=== PATIENT | male | born 1945 | race Caucasian/White ===

== ENCOUNTER 2024-04-28 08:15 | Inpatient (IN) | payer MEDICARE ==
[~2024-04-28] VITALS: Ht 177.8 cm; Wt 99.8 kg
--- NOTE | 2024-04-28 08:37 | ED.PDOC ---
HPI Comments 78 year old male presents to the ED with chief complaint of SOB/chest pain. Patient reports that he has been experiencing SOB with associated chest tightness, cough, bilateral leg edema, and abdominal swelling for the past 6 days. 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 Patient denies any dizziness, headache, fever, chills, N/V, or abdominal pain. Chief Complaint: Chest Pain Time Seen by MD: 08:26 Reviewed Notes: Nurses Notes, Medications, Allergies Allergies: Coded Allergies: Tramadol (Verified Allergy, Unknown, 04/28/24) Information Source: Patient Mode of Arrival: Ambulatory Severity: Moderate Timing: Days Duration: Since onset Prehospital treatment: None Location: Substernal Radiation: No Radiation Quality: Tightness Onset: At Rest Cardiac Risk Factors: HTN, Diabetes PE Risk Factors: None Associated Signs and Symptoms: SOB, Calf Swelling Past Medical History PAST MEDICAL HISTORY: DM, HTN Surgical History: Denies all surgeries Surgical History (Other): Rt knee surgery Family History Family History: Reviewed,noncontributory to illness Social History Smoker: Non-Smoker Alcohol: Denies ETOH Use Drugs: Denies Drug Use Lives In: Home Constitutional: denies: chills, diaphoresis, fatigue, fever, malaise, sweats, weakness, others EENTM: denies: blurred vision, double vision, ear bleeding, ear discharge, ear drainage, ear pain, ear ringing, eye pain, eye redness, hearing loss, mouth pain, mouth swelling, nasal discharge, nose bleeding, nose congestion, nose pain, photophobia, tearing, throat pain, throat swelling, voice changes, others Respiratory: reports: cough, shortness of breath; denies: hemoptysis, orthopnea, SOB at rest, SOB with excertion, stridor, wheezing, others Cardiovascular: reports: chest pain, edema; denies: dizzy spells, diaphoresis, Dyspnea on exertion, irregular heart beat, left arm pain, lightheadedness, palpitations, PND, syncope, others Gastrointestinal: reports: abdomen distended; denies: abdominal pain, blood streaked bowels, constipated, diarrhea, dysphagia, difficulty swallowing, hematemesis, melena, nausea, poor appetite, poor fluid intake, rectal bleeding, rectal pain, vomiting, others Genitourinary: denies: burning, dysuria, flank pain, frequency, hematuria, incontinence, penile discharge, penile sore, pain, testicle pain, testicle swelling, urgency, others Neurological: denies: dizziness, fainting, headache, left sided numbness, left sided weakness, numbness, paresthesia, pre-existing deficit, right sided numbness, right sided weakness, seizure, speech problems, tingling, tremors, weakness, others Musculoskeletal: denies: back pain, gout, joint pain, joint swelling, muscle pain, muscle stiffness, neck pain, others Integumetry: denies: bruises, change in color, change in hair/nails, dryness, laceration, lesions, lumps, rash, wounds, others Allergic/Immunocompromised: denies: Difficulty Healing, Frequent Infections, Hives, Itching, others Hematologic/Lymphatic: denies: anemia, blood clots, easy bleeding, easy bruising, swollen glands, others Endocrine: denies: excessive hunger, excessive sweating, excessive thirst, excessive urination, flushing, intolerance to cold, intolerance to heat, unexplained weight gain, unexplained weight loss, others Psychiatric: denies: anxiety, bipolar disorder, depression, hopeless, panic disorder, schizophrenia, sleepless, suicidal, others All Other Systems: Reviewed and Negative Physical Exam General Appearance: Moderate Distress, Normal HEENT: Normal ENT Inspection, PERRL/EOMI Neck: Full Range of Motion, Non-Tender, Normal, Normal Inspection Respiratory: Chest Non-Tender, Lungs Clear, No Accessory Muscle Use, No Respiratory Distress, Normal Breath Sounds Cardiovascular: No Edema, No JVD, No Murmur, No Gallop, Normal Peripheral Pulses, Regular Rate/Rhythm Breast Exam: Deferred Gastrointestinal: No Organomegaly, Non Tender, No Pulsatile Mass, Normal Bowel Sounds, Soft Genitalia: Deferred Pelvic: Deferred Rectal: Deferred Extremities: No calf tenderness, Normal capillary refill, Normal inspection, Normal range of motion, Non-tender, No pedal edema Musculoskeletal : Apperance: Normal Neurologic: Alert, manager real estate II-XII nml as Tested, No Motor Deficits, Normal Affect, Normal Mood, No Sensory Deficits Cerebellar Function: NOT DONE Reflexes: NOT DONE Skin: Dry, Normal Color, Warm Peripheral Pulses: 3+ Radial (R), 3+ Radial (L) Lymphatic: No Adenopathy Was a procedure done? Was a procedure done?: No CP Differential Dx Differential Diagnosis: A-fib, A-Flutter, Angina, Anxiety / Panic Attack, Atrial Dysrhythmia, Electrolyte Disorder X-Ray, Labs, Meds, VS Vital Signs Date Time Temp Pulse Resp B/P (MAP) Pulse Ox O2 Delivery O2 Flow Rate FiO2 04/28/24 11:08 151/97 04/28/24 11:06 98.4 105 24 151/97 (115) 96 98.4 04/28/24 09:16 113 04/28/24 08:49 140/100 04/28/24 08:48 140/100 04/28/24 08:39 115 24 97 Room Air 04/28/24 08:39 98.7 115 24 140/100 (113) 97 98.7 04/28/24 08:38 98.0 123 18 147/108 (121) 96 04/28/24 08:37 121 Lab Test 04/28/24 11:30 04/28/24 09:30 04/28/24 08:32 Range/Units Troponin I High Sensitivity 29 26 27 </=54 ng/L White Blood Count 6.8 4.4-10.8 10^3/uL Red Blood Count 4.74 4.5-5.90 10^6/uL Hemoglobin 13.9 13.5-17.5 g/dL Hematocrit 42.8 41.0-53.0 % Mean Corpuscular Volume 90.4 80.0-100.0 fL Mean Corpuscular Hemoglobin 29.4 28.0-32.0 pg Mean Corpuscular Hemoglobin Concent 32.5 32.0-36.0 g/dL Red Cell Distribution Width 15.7 H 11.8-14.3 % Platelet Count 249 140-450 10^3/uL Mean Platelet Volume 8.8 6.9-10.8 fL Neutrophils (%) (Auto) 84.2 H 37.0-80.0 % Lymphocytes (%) (Auto) 7.4 L 10.0-50.0 % Monocytes (%) (Auto) 7.1 0.0-12.0 % Eosinophils (%) (Auto) 0.9 0.0-7.0 % Basophils (%) (Auto) 0.4 0.0-2.0 % Neutrophils # (Auto) 5.8 1.6-8.6 10 ^3/uL Lymphocytes # (Auto) 0.5 0.4-5.4 10 ^3/uL Monocytes # (Auto) 0.5 0-1.3 10 ^3/uL Eosinophils # (Auto) 0.1 0-0.8 10 ^3/uL Basophils # (Auto) 0 0-0.2 10 ^3/uL Nucleated Red Blood Cells 0.0 % Sodium Level 139 136-145 mmol/L Potassium Level 4.5 3.5-5.1 mmol/L Chloride Level 106 98-107 mmol/L Carbon Dioxide Level 24 20-31 mmol/L Anion Gap 9 5-15 Blood Urea Nitrogen 19 9-23 mg/dL Creatinine 1.28 0.700-1.30 mg/dL Glomerular Filtration Rate Calc 57 >90 mL/min BUN/Creatinine Ratio 14.8 10.0-20.0 Serum Glucose 149 H 74-106 mg/dL Calcium Level 9.9 8.7-10.4 mg/dL Total Bilirubin 0.7 0.2-1.0 mg/dL Aspartate Amino Transferase (AST) 12 L 13-40 U/L Alanine Aminotransferase (ALT) 18 7-40 U/L Alkaline Phosphatase 58 46-116 U/L B-Type Natriuretic Peptide 1832.35 0-100 pg/mL Total Protein 7.1 5.7-8.2 g/dL Albumin 4.5 3.2-4.8 g/dL Current Medications Medications (Trade) Dose Ordered Sig/Aparna Route Start Time Stop Time Status Last Admin Aspirin 325 mg ONCE ONCE PO 04/28/24 08:30 04/28/24 08:31 DC 04/28/24 08:49 Nitroglycerin (Ntrostat Sublingual) 0.4 mg ONCE ONCE SL 04/28/24 08:30 04/28/24 08:31 DC 04/28/24 08:49 Furosemide (Lasix Injection) 40 mg ONCE ONCE IV 04/28/24 08:30 04/28/24 08:31 DC 04/28/24 08:48 Patient alert. Complaining of shortness a breath. BNP elevated pain Cardiac marker within normal limits. Tachycardia. Leg swelling. Was given aspirin. Was given nitro. Was given Lasix. EKG reviewed does not show any acute changes. Reviewed his previous visit. Explained to the patient. Continue cardiac monitoring. Time of 1ST Reevaluation: 09:26 Reevaluation 1ST: Unchanged Patient Education/Counseling: Diagnosis, Treatment Family Education/Counseling: No Family Present Departure 1 Departure Time of Disposition: 12:59 Impression: Primary Impression: CHF (congestive heart failure) Qualified Codes: I50.43 - Acute on chronic combined systolic (congestive) and diastolic (congestive) heart failure Additional Impression: Pneumonitis Disposition: ADMITTED INPATIENT Admit to: Med Surg Condition: Guarded Critical Care Note Critical Care Time?: Yes (90 min-critical care time only) Stability Stability form required: No Heart Score Heart Score: Heart Score Response (Comments) Value History Highly Suspicious 2 EKG Normal 0 Age >65 2 Risk Factors >3 or Hx ASHD 2 Troponin Normal limit 0 Total 6 I personally scribed for VINICIUS GARCIA MD ([email or web address]) on 04/28/24 at 08:37. Electronically submitted by Chuck Perez ([email or web address]). VINICIUS GARCIA MD Apr 28, 2024 08:37
[2024-04-28] MEDS: FUROSEMIDE 40 MG/4 ML VIAL IV ONE (08:48)
[2024-04-28] MEDS: NITROGLYCERIN 0.4 MG SL TAB SL ONE (08:49)
[2024-04-28] MEDS: ASPirin 325 MG TAB PO ONE (08:49)
[2024-04-28 09:20] LABS: Basophils # (auto) 0 10 ^3/uL (0-0.2); Basophils % (auto) 0.4 % (0.0-2.0); Eosinophils # (auto) 0.1 10 ^3/uL (0-0.8); Eosinophils % (auto) 0.9 % (0.0-7.0); Hematocrit 42.8 % (41.0-53.0); Hemoglobin 13.9 g/dL (13.5-17.5); Lymphocytes # (auto) 0.5 10 ^3/uL (0.4-5.4); Lymphocytes % (auto) 7.4 % (10.0-50.0); Mean Corpuscular Hemoglobin 29.4 pg (28.0-32.0); Mean Corpuscular Hgb Conc. 32.5 g/dL (32.0-36.0); Mean Corpuscular Volume 90.4 fL (80.0-100.0); Monocytes # (auto) 0.5 10 ^3/uL (0-1.3); Monocytes % (auto) 7.1 % (0.0-12.0); Neutrophils # (auto) 5.8 10 ^3/uL (1.6-8.6); Neutrophils % (auto) 84.2 % (37.0-80.0); Platelet Count (auto) 249 10^3/uL (140-450); Red Blood Cells 4.74 10^6/uL (4.5-5.90); Red Cell Distribution Width 15.7 % (11.8-14.3); White Blood Cell 6.8 10^3/uL (4.4-10.8)
[2024-04-28 09:24] LABS: Alanine Aminotransferase 18 U/L (7-40); Albumin 4.5 g/dL (3.2-4.8); Alkaline Phosphatase 58 U/L (46-116); Anion Gap 9 (5-15); Aspartate Aminotransferase 12 U/L (13-40); BUN/Creatinine Ratio 14.8 (10.0-20.0); Bilirubin, Total 0.7 mg/dL (0.2-1.0); Blood Urea Nitrogen 19 mg/dL (9-23); Calcium 9.9 mg/dL (8.7-10.4); Carbon Dioxide 24 mmol/L (20-31); Chloride 106 mmol/L (98-107); Glucose 149 mg/dL (74-106); Potassium 4.5 mmol/L (3.5-5.1); Sodium 139 mmol/L (136-145)
[2024-04-28 09:25] LABS: Total Protein 7.1 g/dL (5.7-8.2)
--- NOTE | 2024-04-28 13:41 | DVH ---
XY CHEST PORTABLE, HISTORY: Shortness of breath COMPARISON: None None TECHNICAL DATA: 1 view of the chest was obtained. FINDINGS: Lines and tubes: None Cardiomediastinal silhouette: enlarged Pulmonary vasculature: prominent Lung expansion: normal Lung airspace: normal Lung interstitium: normal Pleura: normal Pneumothorax: no Bones: Unremarkable Other: no IMPRESSION: Cardiomegaly with pulmonary vascular congestion.
[2024-04-28] MEDS ORDERED: MORPHINE SULFATE INJ 2 MG/ml SYRG IV PRN (14:30)
[2024-04-28] MEDS ORDERED: ONDANSETRON HCL 4 MG/2 ML VIAL IV PRN (14:30)
[2024-04-28] MEDS ORDERED: LOS25T PO (14:41)
[2024-04-28] MEDS ORDERED: DEXTROSE (50%) 50ML SYRG IV PRN (14:45)
--- NOTE | 2024-04-28 15:42 | DVHHP2 ---
History of Present Illness Reason for Visit: Chest pain History of Present Illness 78-year-old male presented to the ED with chief complaint of shortness of breaths/chest pain. Patient reported he had been experiencing shortness of breath with chest tightness, cough, bilateral lower extremity edema, and abdominal swelling for the past 6 days. Patient states he saw his primary care provider 2-3 days ago and was referred to a enterprise infrastructure architect but has not yet seen them. Patient denies headache, dizziness, diaphoresis, abdominal pain, no nausea, vomiting, fever, or chills endorsed by the patient. Patient was admitted for further evaluation medical management. Past Medical History DM, HTN Past Surgical History Right knee surgery Family History Reviewed noncontributory to the management of this case Smoke: No ALCOHOL: none Drugs: None Lives: with Family Review of Systems Constitutional: No: Fever, Chills, Sweats, Weakness, Malaise, Other Eyes: No: Pain, Vision change, Conjunctivae inflammation, Eyelid inflammation, Other, Redness ENT: No: Ear pain, Ear discharge, Nose pain, Nose discharge, Nose congestion, Mouth pain, Mouth swelling, Throat pain, Throat swelling, Other Respiratory: No: Cough, Dry, Shortness of breath, SOB with excertion, Wheezing, Hemoptysis, Pleuritic Pain, Sputum, Wheezing, Other Cardiovascular: Chest Pain, Edema (Bilateral lower extremity and abdominal); No: Palpitations, Orthopnea, Paroxysmal Noc. Dyspnea, Lt Headedness, Other Gastrointestinal: No: Nausea, Vomiting, Abdominal Pain, Diarrhea, Constipation, Melena, Hematochezia, Other Genitourinary: No Dysuria, No Frequency, No Incontinence, No Hematuria, No Retention, No Other Musculoskeletal: No: other, neck pain, shoulder pain, arm pain, back pain, hand pain, leg pain, foot pain Skin: No: Rash, Lesions, Jaundice, Bruising, Other Neurological: No: Weakness, Numbness, Incoordination, Change in speech, Confusion, Seizures, Other Allergies: Coded Allergies: Tramadol (Verified Allergy, Unknown, 04/28/24) Medications Current Medications Medications Dose Ordered Sig/Aparna Route Start Time Stop Time Status Last Admin Dose Admin Acetaminophen/ Hydrocodone Bitart 1 tab Q4HP PRN PO 04/28/24 14:30 UNV Ondansetron HCl 4 mg Q4HP PRN IV 04/28/24 14:30 UNV Nitroglycerin 0.4 mg Q5MINP PRN SL 04/28/24 14:30 UNV Morphine Sulfate 2 mg Q30M PRN IV 04/28/24 14:30 UNV Labetalol HCl 5 mg Q2HPRN PRN IV 04/28/24 14:30 UNV Furosemide 20 mg BIDD IV 04/28/24 18:00 UNV Potassium Chloride 20 meq DAILY PO 04/29/24 10:00 UNV Diagnostic Test (Pha) 1 strip ACHS 04/28/24 17:00 UNV Insulin Human Regular HS SC 04/28/24 22:00 UNV Insulin Human Regular AC SC 04/28/24 17:00 UNV Dextrose 50 ml UD PRN IV 04/28/24 14:45 UNV Losartan Potassium 25 mg DAILY PO 04/29/24 10:00 UNV Exam Vital Signs Vital Signs Date Time Temp Pulse Resp B/P (MAP) Pulse Ox O2 Delivery O2 Flow Rate FiO2 04/28/24 11:08 151/97 04/28/24 11:06 98.4 105 24 96 98.4 04/28/24 08:39 Room Air General Appearance: Alert, Oriented X3, Cooperative, No acute distress HEENT: Atraumatic, PERRLA, EOMI, Mucous membr. moist/pink Respiratory: Clear to auscultation, Normal air movement Cardiovascular: Regular rate, Normal S1, Normal S2, No murmurs Abdominal: Normal bowel sounds, Soft, No tenderness, No hepatospenomegaly, No masses Extremities: No clubbing, No cyanosis, No edema, Normal pulses, No tenderness/swelling Skin: No rashes, No breakdown, No significant lesion Neuro: Normal gait, Normal speech, Strength at 5/5 X4 ext, Normal tone, Sensation intact, Cranial nerves 3-12 NL, Reflexes 2+ Psych/Mental Status: Mental status NL, Mood NL Labs/Xrays Labs, imaging and ED notes reviewed Labs Test 04/28/24 11:30 04/28/24 08:32 Range/Units Troponin I High Sensitivity 29 </=54 ng/L White Blood Count 6.8 4.4-10.8 10^3/uL Red Blood Count 4.74 4.5-5.90 10^6/uL Hemoglobin 13.9 13.5-17.5 g/dL Hematocrit 42.8 41.0-53.0 % Mean Corpuscular Volume 90.4 80.0-100.0 fL Mean Corpuscular Hemoglobin 29.4 28.0-32.0 pg Mean Corpuscular Hemoglobin Concent 32.5 32.0-36.0 g/dL Red Cell Distribution Width 15.7 H 11.8-14.3 % Platelet Count 249 140-450 10^3/uL Mean Platelet Volume 8.8 6.9-10.8 fL Neutrophils (%) (Auto) 84.2 H 37.0-80.0 % Lymphocytes (%) (Auto) 7.4 L 10.0-50.0 % Monocytes (%) (Auto) 7.1 0.0-12.0 % Eosinophils (%) (Auto) 0.9 0.0-7.0 % Basophils (%) (Auto) 0.4 0.0-2.0 % Neutrophils # (Auto) 5.8 1.6-8.6 10 ^3/uL Lymphocytes # (Auto) 0.5 0.4-5.4 10 ^3/uL Monocytes # (Auto) 0.5 0-1.3 10 ^3/uL Eosinophils # (Auto) 0.1 0-0.8 10 ^3/uL Basophils # (Auto) 0 0-0.2 10 ^3/uL Nucleated Red Blood Cells 0.0 % Sodium Level 139 136-145 mmol/L Potassium Level 4.5 3.5-5.1 mmol/L Chloride Level 106 98-107 mmol/L Carbon Dioxide Level 24 20-31 mmol/L Anion Gap 9 5-15 Blood Urea Nitrogen 19 9-23 mg/dL Creatinine 1.28 0.700-1.30 mg/dL Glomerular Filtration Rate Calc 57 >90 mL/min BUN/Creatinine Ratio 14.8 10.0-20.0 Serum Glucose 149 H 74-106 mg/dL Hemoglobin A1c 7.4 H <5.7 % A1C Calcium Level 9.9 8.7-10.4 mg/dL Total Bilirubin 0.7 0.2-1.0 mg/dL Aspartate Amino Transferase (AST) 12 L 13-40 U/L Alanine Aminotransferase (ALT) 18 7-40 U/L Alkaline Phosphatase 58 46-116 U/L B-Type Natriuretic Peptide 1832.35 0-100 pg/mL Total Protein 7.1 5.7-8.2 g/dL Albumin 4.5 3.2-4.8 g/dL Assessment/Plan Assessment/Plan Impression: Acute Chest pain Lower extremity edema Shortness of breath Possible new CHF Diabetes mellitus type 2 pulmonary vascular congestion Plan: Admit to telemetry ACS protocol Consult cardiology Lasix IV/potassium Monitor labs Monitor I&Os BNP 1832 Accu-Cheks a.c. HS/insulin sliding scale Chest x-ray showed cardiomegaly with pulmonary vascular congestion Continue home meds Plan discussed with: Patient My Orders Orders - CALVILLOGHASSAN [employer]NER Procedure Category Date Status Time Chest Portable XY 04/28/24 Resulted 12:55 Covid19 Antigen [facility] 04/28/24 Logged Rapid Influenza A&B LAB 04/28/24 Logged 12:56 Admit ADMIT 04/28/24 Transmitted 14:26 Code Status CODE 04/28/24 Transmitted 14:26 Vital Signs [facility] 04/28/24 In Process 14:26 Review Orders With [facility] 04/28/24 In Process Adm. 14:26 Bedside Commode [facility] 04/28/24 In Process 14:26 Notify Of Changes [facility] 04/28/24 In Process From Base 14:26 Advance Directive [facility] 04/28/24 In Process 14:26 Basic Metabolic Panel LAB 04/29/24 Verified 04:00 Complete Blood Count LAB 04/29/24 Verified 04:00 Patient Condition ORDERS 04/28/24 Transmitted 14:26 Allergies [facility] 04/28/24 In Process 14:26 Hydrocodone-Acet PHA 04/28/24 Logged 5/325mg Tab (Gering 14:30 Ondansetron Hcl PHA 04/28/24 Logged (Zofran) 14:30 Cardiac DIET 04/28/24 Transmitted Diet-2gna,Lofat,Lochol Dinner Nitroglycerin PHA 04/28/24 Logged Sublingual (Ntrostat 14:30 Morphine Sulfate PHA 04/28/24 Logged Injection 14:30 Stat Ekg For Chest [facility] 04/28/24 In Process Pain 14:26 Notify Of Changes [facility] 04/28/24 In Process From Base 14:26 Innovation Manager For [facility] 04/28/24 In Process 24 Hours 14:26 Emergency Dysrhythmia [facility] 04/28/24 In Process Protocol 14:26 Rhythm Strips Once [facility] 04/28/24 In Process Every Shift 14:26 Oxygen By Nasal RT 04/28/24 Transmitted Cannula 14:26 Labetalol Hcl PHA 04/28/24 Logged (Labetalol Hcl) 14:30 * Cardiology Consult CONS 04/28/24 Transmitted 14:26 Furosemide Injection PHA 04/28/24 Logged (Lasix Injection) 18:00 Potassium Er Tablet PHA 04/29/24 Logged (Klor-Con Tablet) 10:00 Glucose Blood PHA 04/28/24 Logged (Accu-Chek Comfort 17:00 Insulin R (Human) PHA 04/28/24 Logged (Insulin R) 22:00 Insulin R (Human) PHA 04/28/24 Logged (Insulin R) 17:00 Dextrose 50% Syringe PHA 04/28/24 Logged 14:45 Losartan Tablet PHA 04/29/24 Logged (Cozaar Tablet) 10:00 Date of Service: Apr 28, 2024 Billing Provider: GHASSAN CALVILLO Common Visit Codes: 11812-[id number] INP/OBS CARE (HIGH) GHASSAN CALVILLO Apr 28, 2024 15:42
[2024-04-28] MEDS: InsuLIN REG 1unit/0.01ml Soln (100units/ml) SC SCH ×2 (17:00→23:01)
[2024-04-28] MEDS: ACCU-CHEK COMFORT CURVE STRIP VI SCH (17:00)
[2024-04-28 18:46] VITALS: RESP 19; O2SAT 95
[2024-04-28] MEDS: FUROSEMIDE 20 MG/2 ML VIAL IV SCH (18:51)
--- NOTE | 2024-04-28 19:00 | ECG ---
[facility] Test Date: 2024-04-28 Test Time: 09:16:26 Pat Name: ADARSH ROOT Department: ED Room: 0288T B Gender: M Filament Cutter: EDMUND : 1945 Requested By: VINICIUS GARCIA Order Number: [id number] Reading MD: Otilio Hughes Measurements Intervals [place] Rate: 113 P: 0 TN: 0 QRS: -21 QRSD: 157 T: 153 QT: 371 QTc: 509 Interpretive Statements Atrial flutter with predominant 2:1 AV block Left bundle branch block Baseline wander in lead(s) V1,V2 Electronically Signed On 05-04-2024 13:22:30 PST by Otilio Hughes Please click the below link to view image of tracing.
[2024-04-28] MEDS ORDERED: MOME1SPR3 NAS (19:57)
[2024-04-28] MEDS ORDERED: METF-372 PO (19:57)
[2024-04-28] MEDS ORDERED: AMOX875T4 (19:57)
[2024-04-28] MEDS: LABETALOL HCL 20 MG/4 ML VL IV PRN (20:51)
[2024-04-28 21:00] VITALS: BP 117/85; PULSE 86; RESP 20; TEMP 98.6; O2SAT 96
[2024-04-28] MEDS: NITROGLYCERIN 0.4 MG SL TAB SL PRN (22:01)
[2024-04-29] VITALS (7 sets, daily range): BP systolic 116–140; BP diastolic 79–94; PULSE 61–88; RESP 18–20; TEMP 97.4–98.8; O2SAT 94–100
[2024-04-29 03:49] LABS: COVID19 ANTIGEN SOFIA FIA NEGATIVE (NEGATIVE); Rapid Influenza A Negative (Negative); Rapid Influenza B Negative (Negative)
[2024-04-29 06:07] LABS: Basophils # (auto) 0 10 ^3/uL (0-0.2); Basophils % (auto) 0.7 % (0.0-2.0); Eosinophils # (auto) 0.2 10 ^3/uL (0-0.8); Eosinophils % (auto) 3.3 % (0.0-7.0); Hematocrit 40.9 % (41.0-53.0); Lymphocytes # (auto) 0.7 10 ^3/uL (0.4-5.4); Lymphocytes % (auto) 10.8 % (10.0-50.0); Mean Corpuscular Hemoglobin 30.8 pg (28.0-32.0); Mean Corpuscular Hgb Conc. 34.1 g/dL (32.0-36.0); Mean Corpuscular Volume 90.1 fL (80.0-100.0); Monocytes # (auto) 0.5 10 ^3/uL (0-1.3); Monocytes % (auto) 7.9 % (0.0-12.0); Neutrophils # (auto) 4.9 10 ^3/uL (1.6-8.6); Neutrophils % (auto) 77.3 % (37.0-80.0); Platelet Count (auto) 222 10^3/uL (140-450); Red Blood Cells 4.54 10^6/uL (4.5-5.90); Red Cell Distribution Width 15.2 % (11.8-14.3); White Blood Cell 6.4 10^3/uL (4.4-10.8)
[2024-04-29 06:37] LABS: Anion Gap 8 (5-15); Carbon Dioxide 29 mmol/L (20-31); Chloride 103 mmol/L (98-107); Potassium 3.9 mmol/L (3.5-5.1); Sodium 140 mmol/L (136-145)
[2024-04-29 06:38] LABS: Calcium 9.6 mg/dL (8.7-10.4)
[2024-04-29 06:43] LABS: BUN/Creatinine Ratio 13.3 (10.0-20.0); Blood Urea Nitrogen 15 mg/dL (9-23); Glucose 107 mg/dL (74-106)
--- NOTE | 2024-04-29 07:00 | ECG ---
[facility] Test Date: 2024-04-28 Test Time: 08:22:17 Pat Name: ADARSH ROOT Department: ER Room: [facility]8T B Gender: M Disk Recordist: NICK : 1945 Requested By: VINICIUS GARCIA Order Number: [id number] Reading MD: Otilio Hughes Measurements Intervals [place] Rate: 121 P: -72 GA: 120 QRS: -27 QRSD: 156 T: 145 QT: 394 QTc: 559 Interpretive Statements Sinus or ectopic atrial tachycardia Left bundle branch block Electronically Signed On 05-04-2024 13:21:42 PST by Otilio Hughes Please click the below link to view image of tracing.
[2024-04-29] MEDS ORDERED: LOSARTAN POTASSIUM 25 MG TAB PO SCH (10:00)
[2024-04-29] MEDS: POTASSIUM CHL 20 Meq TABLET PO SCH (11:54)
[2024-04-29] MEDS: METOPROLOL TARTRATE 25 MG TAB PO ONE (12:01)
--- NOTE | 2024-04-29 13:15 | DVHINCON2 ---
Date Seen: Apr 29, 2024 Referring Physician REGGIE Landeros Reason for Consultation CHF History of Present Illness 78-year-old male with PMH for HTN and DM presents to the hospital with shortness of breath and chest pressure. Patient states that symptoms started approximately 4 weeks ago with shortness of breath and some mild edema to bilateral lower extremity. Symptoms became worse to the point to where patient had significant orthopnea unable to lay flat needing the sit up to sleep. Patient states chest tightness associated with worsening shortness of breath across left or right-sided chest, tightness in nature, unable to catch breath, nonradiating. Patient was following up with PCP for which he was referred to database administration manager though has not seen yet and can not wait as breathing was worsening. Patient denies current tobacco use, quit "a long time ago", denies alcohol use, and denies illicit drug use. Upon evaluation in the ER patient noted to have elevated BNP of 1832, negative trending troponins, CXR showing cardiomegaly with pulmonary vascular congestion. EKG reviewed and shows sinus rhythm an 82 beats per minute, LBBB, nonspecific T-wave. Past Medical History HTN DM Family History: Patient reports no known family medical history. Family History Denies pertinent family cardiac history Social History Denies current alcohol, tobacco, or illicit drug use Allergies: Coded Allergies: Tramadol (Verified Allergy, Severe, ANAPHYLACTIC, 04/28/24) CAN NOT BREATHE THROAT TIGHTNESS Uncoded Allergies: EGGS (Allergy, Severe, ANAPHYLACTIC, 04/28/24) Home Meds Reported Medications Amoxicillin & Pot Clavulanate (Amoxicillin/Potassium Cla) 875 Mg Tab 04/28/24 Metformin Hydrochloride (Metformin Hcl) 1,000 Mg Tab, 1 TAB PO BID 04/28/24 Mometasone Furoate (Nasal) (Mometasone Furoate) 50 Mcg/Act Spr, 2 SPRAY MIHIR DAILY 04/28/24 Losartan Potassium (Losartan Potassium) 25 Mg Tab, 1 TAB PO DAILY 04/28/24 Current Medications Current Medications Medications (Trade) Dose Ordered Sig/Aparna Route PRN Reason Start Time Stop Time Status Last Admin Acetaminophen/ Hydrocodone Bitart ([place] 5/325MG Tab) 1 tab Q4HP PRN PO MODERATE PAIN (4-6 PAIN SCALE) 04/28/24 14:30 Ondansetron HCl (Zofran) 4 mg Q4HP PRN IV NAUSEA / VOMITING 04/28/24 14:30 Nitroglycerin (Ntrostat Sublingual) 0.4 mg Q5MINP PRN SL FOR CHEST PAIN 04/28/24 14:30 04/28/24 22:01 Morphine Sulfate 2 mg Q30M PRN IV FOR CHEST PAIN 04/28/24 14:30 Labetalol HCl (Labetalol HCl) 5 mg Q2HPRN PRN IV SBP>150 04/28/24 14:30 04/28/24 20:51 Furosemide (Lasix Injection) 20 mg BIDD IV 04/28/24 18:00 04/29/24 06:27 Potassium Chloride (Klor-Con Tablet) 20 meq DAILY PO 04/29/24 10:00 04/29/24 11:54 Diagnostic Test (Pha) (Accu-Chek Comfort Curve T) 1 strip ACHS 04/28/24 17:00 04/29/24 12:03 Insulin Human Regular (InsuLIN R) HS SC 04/28/24 22:00 04/28/24 23:01 Insulin Human Regular (InsuLIN R) AC SC 04/28/24 17:00 04/29/24 11:57 Dextrose 50 ml UD PRN IV Blood Sugar LESS THAN 60 04/28/24 14:45 Losartan Potassium (Cozaar Tablet) 25 mg DAILY PO 04/29/24 10:00 04/29/24 10:13 DC Metoprolol Tartrate (Lopressor Tablet) 25 mg BID PO 04/29/24 22:00 Review of Systems Constitutional: No: Fever, Chills, Sweats, Weakness, Malaise, Other Eyes: No: Pain, Vision change, Conjunctivae inflammation, Eyelid inflammation, Other, Redness ENT: No: Ear pain, Ear discharge, Nose pain, Nose discharge, Nose congestion, Mouth pain, Mouth swelling, Throat pain, Throat swelling, Other Respiratory: No: Cough, Dry, , Wheezing, Hemoptysis, Pleuritic Pain, Sputum, Wheezing, Other positive: Shortness of breath, SOB with exertion Cardiovascular: ; No: Chest Pain Palpitations, Orthopnea, Paroxysmal Noc. Dyspnea, , Lt Headedness, Other positive: Edema Gastrointestinal: No: Nausea, Vomiting, Abdominal Pain, Diarrhea, Constipation, Melena, Hematochezia, Other Genitourinary: No Dysuria, No Frequency, No Incontinence, No Hematuria, No Retention, No Other Musculoskeletal: neck pain; No: other, shoulder pain, arm pain, back pain, hand pain, leg pain, foot pain Skin: No: Rash, Lesions, Jaundice, Bruising, Other Neurological: Other (Dizziness, headache.); No: Weakness, Numbness, Incoordination, Change in speech, Confusion, Seizures Vital Signs Vital Signs Date Time Temp Pulse Resp B/P (MAP) Pulse Ox O2 Delivery O2 Flow Rate FiO2 04/29/24 12:01 88 140/87 04/29/24 08:00 Room Air* 0 21 04/29/24 08:00 97.5 18 95 97.5 Physical Exam General appearance: Patient is well-developed, well-nourished, in mild acute distress. HEENT: Exam shows: Normocephalic, atraumatic, PERRLA, EOMI Neck: Supple, no bruits Chest: Equal chest excursion bilaterally. Breath sounds crackles/rales. Heart: Rhythm: Regular rate; no murmur or gallop Abdomen: Exam shows: Soft, nontender, nondistended Musculoskeletal: No clubbing, no cyanosis, +2-3 lower extremity edema Dermatology: Skin warm, moist. Neurological: Exam shows: Alert and oriented x4, normal speech Available prior records, labs, EKG, rhythm strips reviewed and interpreted Labs/Diagnostic Data Labs Test 04/29/24 11:25 04/29/24 05:27 04/28/24 23:20 04/28/24 11:30 Range/Units POC Glucose 132 H 70-106 mg/dl White Blood Count 6.4 4.4-10.8 10^3/uL Red Blood Count 4.54 4.5-5.90 10^6/uL Hemoglobin 14.0 13.5-17.5 g/dL Hematocrit 40.9 L 41.0-53.0 % Mean Corpuscular Volume 90.1 80.0-100.0 fL Mean Corpuscular Hemoglobin 30.8 28.0-32.0 pg Mean Corpuscular Hemoglobin Concent 34.1 32.0-36.0 g/dL Red Cell Distribution Width 15.2 H 11.8-14.3 % Platelet Count 222 140-450 10^3/uL Mean Platelet Volume 8.9 6.9-10.8 fL Neutrophils (%) (Auto) 77.3 37.0-80.0 % Lymphocytes (%) (Auto) 10.8 10.0-50.0 % Monocytes (%) (Auto) 7.9 0.0-12.0 % Eosinophils (%) (Auto) 3.3 0.0-7.0 % Basophils (%) (Auto) 0.7 0.0-2.0 % Neutrophils # (Auto) 4.9 1.6-8.6 10 ^3/uL Lymphocytes # (Auto) 0.7 0.4-5.4 10 ^3/uL Monocytes # (Auto) 0.5 0-1.3 10 ^3/uL Eosinophils # (Auto) 0.2 0-0.8 10 ^3/uL Basophils # (Auto) 0 0-0.2 10 ^3/uL Nucleated Red Blood Cells 0.0 % Sodium Level 140 136-145 mmol/L Potassium Level 3.9 3.5-5.1 mmol/L Chloride Level 103 98-107 mmol/L Carbon Dioxide Level 29 20-31 mmol/L Anion Gap 8 5-15 Blood Urea Nitrogen 15 9-23 mg/dL Creatinine 1.13 0.700-1.30 mg/dL Glomerular Filtration Rate Calc 67 >90 mL/min BUN/Creatinine Ratio 13.3 10.0-20.0 Serum Glucose 107 H 74-106 mg/dL Calcium Level 9.6 8.7-10.4 mg/dL Influenza Type A Antigen Negative Negative Influenza Type B Antigen Negative Negative SARS-CoV-2 Antigen (Rapid) Negative NEGATIVE Troponin I High Sensitivity 29 </=54 ng/L Test 04/28/24 08:32 Range/Units Hemoglobin A1c 7.4 H <5.7 % A1C Total Bilirubin 0.7 0.2-1.0 mg/dL Aspartate Amino Transferase (AST) 12 L 13-40 U/L Alanine Aminotransferase (ALT) 18 7-40 U/L Alkaline Phosphatase 58 46-116 U/L B-Type Natriuretic Peptide 1832.35 0-100 pg/mL Total Protein 7.1 5.7-8.2 g/dL Albumin 4.5 3.2-4.8 g/dL Assessment * Acute CHF - unknown systolic versus diastolic, continue diuresing with Lasix. Monitor strict I&Os. Follow-up echo. * HTN - continue metoprolol 25 mg p.o. b.i.d. * PACs, Sinus Arrythmia - metoprolol 25 mg p.o. twice daily. * DM -management per primary team. * Hypokalemia - monitoring replace electrolytes. * BLE Edema - US R/O DVT Case Discussed with Dr Brito. Continue diuresing patient. Continue metoprolol for PAC, sinus arrhythmia. Follow-up echo. Critical care, time spent: 48 minutes This medical document was created using an electronic medical record system with voice recognition software and computerized dictation system. Although this document has been carefully reviewed, there might still be some phonetic and typographical errors. Occasional wrong-word or ``sound-alike substitutions may have occurred due to the inherent limitations of voice recognition software. These areas are purely typographical due to imperfections of the software programs and do not reflect any compromise in the patient's medical care. Please read the chart carefully and recognize, using context, where these substitutions have occurred. Plan discussed with: Patient Date of Service: Apr 29, 2024 Billing Provider: INGA CHURCH Cardiology Common Codes: [id number] INP/OBS CARE (High), [id number] CARE 30-74 MIN INGA CHURCH Apr 29, 2024 13:15
--- NOTE | 2024-04-29 13:42 | DVHPN2 ---
Reviewed: Care Plan, H&P, Labs, Medications, Previous Orders, Radiology Changes from previous H/P or p: No Changes Eyes: No Pain, No Vision change, No Conjunctivae inflammation, No Eyelid inflammation, No Other, No Redness ENT: No Ear pain, No Ear discharge, No Nose pain, No Nose discharge, No Nose congestion, No Mouth pain, No Mouth swelling, No Throat pain, No Throat swelling, No Other Cardiovascular: Chest Pain; No Palpitations, No Orthopnea, No Paroxysmal Noc. Dyspnea; Edema (Bilateral lower extremity and abdominal); No Lt Headedness, No Other Respiratory: No Cough, No Dry, No Shortness of breath, No SOB with excertion, No Wheezing, No Hemoptysis, No Pleuritic Pain, No Sputum, No Other Gastrointestinal: No Nausea, No Vomiting, No Abdominal Pain, No Diarrhea, No Constipation, No Melena, No Hematochezia, No Other Genitourinary: No Dysuria, No Frequency, No Incontinence, No Hematuria, No Retention, No Other Musculoskeletal: No other, No neck pain, No shoulder pain, No arm pain, No back pain, No hand pain, No leg pain, No foot pain Skin: No Rash, No Lesions, No Jaundice, No Bruising, No Other Objective Vitals Vital Signs Date Time Temp Pulse Resp B/P (MAP) Pulse Ox O2 Delivery O2 Flow Rate FiO2 04/29/24 12:01 88 140/87 04/29/24 08:00 Room Air* 0 21 04/29/24 08:00 97.5 18 95 97.5 Intake/Output Intake and Output 04/29/24 07:00 Intake Total 0 ml Output Total 0 ml Balance 0 ml Intake Oral 0 ml Output Urine Total 0 ml Medications Current Medications Medications Dose Ordered Sig/Aparna Route Start Time Stop Time Status Last Admin Dose Admin Acetaminophen/ Hydrocodone Bitart 1 tab Q4HP PRN PO 04/28/24 14:30 Ondansetron HCl 4 mg Q4HP PRN IV 04/28/24 14:30 Nitroglycerin 0.4 mg Q5MINP PRN SL 04/28/24 14:30 04/28/24 22:01 0.4 MG Morphine Sulfate 2 mg Q30M PRN IV 04/28/24 14:30 Labetalol HCl 5 mg Q2HPRN PRN IV 04/28/24 14:30 04/28/24 20:51 5 MG Furosemide 20 mg BIDD IV 04/28/24 18:00 04/29/24 06:27 20 MG Potassium Chloride 20 meq DAILY PO 04/29/24 10:00 04/29/24 11:54 20 MEQ Diagnostic Test (Pha) 1 strip ACHS 04/28/24 17:00 04/29/24 12:03 1 STRIP Insulin Human Regular HS SC 04/28/24 22:00 04/28/24 23:01 3 UNITS Insulin Human Regular AC SC 04/28/24 17:00 04/29/24 11:57 2 UNITS Dextrose 50 ml UD PRN IV 04/28/24 14:45 Metoprolol Tartrate 25 mg BID PO 04/29/24 22:00 Laboratory Results Laboratory Tests 04/29/24 05:27 Chemistry Test 04/29/24 05:27 Calcium Level 9.6 mg/dL (8.7-10.4) Magnesium Level Pending Labs and/or images reviewed: Labs reviewed by me, Image(s) reviewed by me Assessment/Plan Assessment/Plan Acute CHF - unknown systolic versus diastolic, continue diuresing with Lasix. Monitor strict I&Os. Follow-up echo, cardiology consult by Dr. Brito appreciated HTN - continue metoprolol 25 mg p.o. b.i.d. PACs, Sinus Arrythmia - metoprolol 25 mg p.o. twice daily. Type 2 diabetes: Insulin sliding scale Hypokalemia - monitoring replace electrolytes. BLE Edema - US R/O DVT Time spent 45 minutes Patient is full code Advanced care planning time 20 minutes Flu Test negative Julia test negative Plan discussed with: Patient Date of Service: Apr 29, 2024 Billing Provider: KIANNA MARIE MD Common Visit Codes: [id number] INP/OBS CARE(HIGH) Secondary Visit Codes: [id number] CARE PLAN 30 MINUTES KIANNA MARIE MD Apr 29, 2024 13:42
--- NOTE | 2024-04-29 15:09 | DVH ---
Exam: CT CT AB PEL WO CON-NO ORAL OR IV History: R/O ASCITES Comparison Study: None Technique: Multidetector spiral CT of the abdomen was performed from lung bases to pubic symphysis. Imaging was performed without IV contrast. Axial, coronal and sagittal multiplanar reformats were ob tained from the axial data set by the technologist. Radiation Dose : 1. Abdomen/Pelvis: CTDIvol 24 mGy, DLP 1195.68 mGy*cm. Findings: Evaluation of solid organs is limited due to lack of intravenous contrast use. Lung Bases: Probable interstitial pulmonary edema. Small to moderate right and small left pleural eff usions. Liver: The liver is normal in size. No focal lesions. Gallbladder and Biliary Tree: Unremarkable Spleen: Unremarkable Pancreas: The pancreas is grossly normal in appearance. Adrenal Glands: Unremarkable Kidneys: Kidneys are grossly normal without calculi or hydronephrosis. Bladder: Grossly unremarkable for degree of distention. Bowel: The stomach is grossly normal in appearance. Small bowel and colon are normal in caliber and d istribution. The appendix is not visualized; however, no secondary findings of acute appendicitis id entified. Ascites: Trace abdominopelvic ascites. Lymphadenopathy: No mesenteric, retroperitoneal or periportal lymphadenopathy. Abdominal Wall and Mesentery: Unremarkable. Vasculature: The visualized abdominal aorta is normal in size and caliber. Evaluation of abdominal a nd pelvic vessels is limited due to lack of intravenous contrast. Pelvic Organs: Prostatomegaly measuring up to 6 cm in transverse dimension. Musculoskeletal: No aggressive focal bony lesions, acute fractures or dislocation. IMPRESSION: 1. No acute abdominal or pelvic findings. 2. Trace abdominopelvic ascites. 3. Prostatomegaly. 4. Probable interstitial pulmonary edema. 5. Small to moderate right and small left pleural effusions. Radiation optimization: All CT scans at this facility use at least one of these dose optimization luis e hniques: automated exposure control mA and/or kV adjustment per patient size (includes targeted exam s where dose is matched to clinical indication) or iterative reconstruction.
--- NOTE | 2024-04-29 15:44 | DVHSR ---
APPROVED REPORT EXAM: Two-dimensional and M-mode echocardiogram with Doppler and color Doppler. Blood Pressure: 119/79 mmHg INDICATION CHF RISK FACTORS Height: 5' 10", Weight: 227 DIMENSIONS LVDd5.2 (3.8-5.7cm)LA (2D)5.1 (1.9-4.0cm)Aortic Root3.4 (2.0-3.7cm) LVDs4.7 (2.5-4.0cm)LA (MM) (1.9-4.0cm)Aortic Cusp Exc (1.5-2.0cm) EF (%) 25.0 (55-70%)Rt. Atrium5.1 (1.9-4.0cm)Asc. Aorta cm IVSd1.4 (0.7-1.1cm)RV (D) (1.8-2.4cm) PWd1.3 (0.7-1.1cm) Mitral Valve MitralMitral Stenosis E wave1.00m/sMV Mean GR.mmHg A wave0.60m/sMV Peak GR.mmHg E/A ratio1.72D MVAcm2 Aortic Valve Aortic ValveAortic Stenosis V10.50m/C[place]sea Mean GR.23mmHg V23.00m/[place] Peak GR.37mmHg LVOT Diameter2.0 (1.8-2.4cm)Doppler AVA0.52cm2 AI P 1/2 Scnv698.30ms Pulmonic Valve V20.40m/s Tricuspid Valve TR Velocity2.20m/s [id number] Conclusion lvef 20% by visual estimate dilated LV severe global dysfunction aortic valve severely calcified, mean gradient of 22 mhg, restricted motion, highly suspicious for lo w flow low gradient severe , clinical correlate severe tricuspid regurg moderate mitral regurg moderate MAC RV enlarged, RV dysfunction biatrial enlargement
--- NOTE | 2024-04-29 17:10 | DVH ---
Bilateral lower extremity venous duplex Clinical History: BLE edema Comparison: None Technique: Duplex Doppler evaluation of the deep venous systems of both lower extremities from the common femora l veins to the popliteal veins including color Doppler and spectral/pulsed waveform analysis was perf ormed. Findings: RIGHT SIDE: The common femoral vein demonstrates appropriate compressibility and waveform variability. There is compressibility/patency of the great saphenous vein at the proximal thigh. The femoral vein demonstrates appropriate compressibility and waveform variability. The deep femoral vein demonstrates appropriate compressibility and waveform variability. The popliteal vein demonstrates appropriate compressibility and waveform variability. There is normal compressibility at the tibioperoneal trunk. LEFT SIDE: The common femoral vein demonstrates appropriate compressibility and waveform variability. There is compressibility/patency of the great saphenous vein at the proximal thigh. The femoral vein demonstrates appropriate compressibility and waveform variability. The deep femoral vein demonstrates appropriate compressibility and waveform variability. The popliteal vein demonstrates appropriate compressibility and waveform variability. There is normal compressibility at the tibioperoneal trunk. Impression: 1. No right or left femoropopliteal venous thrombosis.
[2024-04-29] MEDS: METOPROLOL TARTRATE 25 MG TAB PO SCH (21:42)
[2024-04-30] VITALS (8 sets, daily range): BP systolic 103–148; BP diastolic 71–93; PULSE 60–79; RESP 16–20; TEMP 97–98.2; O2SAT 96–100
[2024-04-30] MEDS: LORazepam 0.5 MG TAB PO PRN (00:14)
[2024-04-30] MEDS: HYDROcodone-ACET 5/325MG TAB PO PRN (04:20)
[2024-04-30 08:52] LABS: Chloride 102 mmol/L (98-107); Potassium 4.1 mmol/L (3.5-5.1); Sodium 136 mmol/L (136-145)
[2024-04-30 08:53] LABS: Anion Gap 11 (5-15); Calcium 9.5 mg/dL (8.7-10.4); Carbon Dioxide 23 mmol/L (20-31)
[2024-04-30 08:58] LABS: BUN/Creatinine Ratio 12.6 (10.0-20.0); Blood Urea Nitrogen 16 mg/dL (9-23); Glucose 126 mg/dL (74-106)
[2024-04-30 08:59] LABS: Magnesium 1.8 mg/dL (1.6-2.6)
--- NOTE | 2024-04-30 11:45 | DVHPN2 ---
Reviewed: Care Plan, H&P, Labs, Medications, Previous Orders, Radiology Changes from previous H/P or p: No Changes Eyes: No Pain, No Vision change, No Conjunctivae inflammation, No Eyelid inflammation, No Other, No Redness ENT: No Ear pain, No Ear discharge, No Nose pain, No Nose discharge, No Nose congestion, No Mouth pain, No Mouth swelling, No Throat pain, No Throat swelling, No Other Cardiovascular: Chest Pain; No Palpitations, No Orthopnea, No Paroxysmal Noc. Dyspnea; Edema (Bilateral lower extremity and abdominal); No Lt Headedness, No Other Respiratory: No Cough, No Dry, No Shortness of breath, No SOB with excertion, No Wheezing, No Hemoptysis, No Pleuritic Pain, No Sputum, No Other Gastrointestinal: No Nausea, No Vomiting, No Abdominal Pain, No Diarrhea, No Constipation, No Melena, No Hematochezia, No Other Genitourinary: No Dysuria, No Frequency, No Incontinence, No Hematuria, No Retention, No Other Musculoskeletal: No other, No neck pain, No shoulder pain, No arm pain, No back pain, No hand pain, No leg pain, No foot pain Skin: No Rash, No Lesions, No Jaundice, No Bruising, No Other Objective Vitals Vital Signs Date Time Temp Pulse Resp B/P (MAP) Pulse Ox O2 Delivery O2 Flow Rate FiO2 04/30/24 11:20 72 134/93 04/30/24 09:00 97.4 16 100 97.4 04/29/24 08:00 Room Air* 0 21 Intake/Output Intake and Output 04/30/24 07:00 Intake Total 2210 ml Output Total 2900 ml Balance -690 ml Intake Oral 2210 ml Output Urine Total 2900 ml # Voids 1 # Bowel Movements 5 Medications Current Medications Medications Dose Ordered Sig/Aparna Route Start Time Stop Time Status Last Admin Dose Admin Acetaminophen/ Hydrocodone Bitart 1 tab Q4HP PRN PO 04/28/24 14:30 04/30/24 04:20 1 TAB Ondansetron HCl 4 mg Q4HP PRN IV 04/28/24 14:30 Nitroglycerin 0.4 mg Q5MINP PRN SL 04/28/24 14:30 04/28/24 22:01 0.4 MG Morphine Sulfate 2 mg Q30M PRN IV 04/28/24 14:30 Labetalol HCl 5 mg Q2HPRN PRN IV 04/28/24 14:30 04/28/24 20:51 5 MG Furosemide 20 mg BIDD IV 04/28/24 18:00 04/30/24 06:39 20 MG Potassium Chloride 20 meq DAILY PO 04/29/24 10:00 04/30/24 11:19 20 MEQ Diagnostic Test (Pha) 1 strip ACHS 04/28/24 17:00 04/30/24 11:22 1 STRIP Insulin Human Regular HS SC 04/28/24 22:00 04/29/24 21:43 6 UNITS Insulin Human Regular AC SC 04/28/24 17:00 04/30/24 11:21 2 UNITS Dextrose 50 ml UD PRN IV 04/28/24 14:45 Metoprolol Tartrate 25 mg BID PO 04/29/24 22:00 04/30/24 11:20 25 MG Lorazepam 0.5 mg Q6HP PRN PO 04/30/24 00:00 04/30/24 00:14 0.5 MG Laboratory Results Laboratory Tests 04/29/24 05:27 04/30/24 08:25 Chemistry Test 04/30/24 08:25 Calcium Level 9.5 mg/dL (8.7-10.4) Magnesium Level 1.8 mg/dL (1.6-2.6) Coagulation Test 04/29/24 14:20 D-Dimer, Quantitative 0.57 mg/L FEU (0.0-0.49) H Labs and/or images reviewed: Labs reviewed by me, Image(s) reviewed by me Assessment/Plan Assessment/Plan Acute systolic CHF exacerbation ejection fraction 20 % continue Lasix consult by Dr. Brito appreciated Severe aortic stenosis; getting FLORA and left heart catheterization tomorrow HTN - continue metoprolol 25 mg p.o. b.i.d. PACs, Sinus Arrythmia - metoprolol 25 mg p.o. twice daily. Type 2 diabetes: Insulin sliding scale Hypokalemia - monitoring replace electrolytes. BLE Edema DVT ruled out CT abdomen pelvis without contrast negative Time spent 45 minutes Patient is full code Advanced care planning time 20 minutes Flu Test negative Julia test negative Patient lives alone in [place], is a vegan, interested in astronomy Pt was seen by Dr Christiane Hills [facility] four days back. Plan discussed with: Patient My Orders Orders - KIANNA MARIE MD Procedure Category Date Status Time Ct Ab Pel Wo Con-No CT 04/29/24 Resulted Oral Or Iv 13:56 Lorazepam Tablet PHA 04/30/24 In Process (Ativan Tablet) 00:00 Date of Service: Apr 30, 2024 Billing Provider: KIANNA MARIE MD Common Visit Codes: [id number] CARE 30-74 MIN KIANNA MARIE MD Apr 30, 2024 11:45
--- NOTE | 2024-04-30 12:23 | DVHPN2 ---
Consult Progress Note Subjective Patient reports: Feels better (slightly) Review of Systems: CVS:Abnormal (BLE Edema improving), RESPIRATORY:Abnormal (SOB with exertion, Orthopnea) Objective vital signs Vital Sign Date Time Temp Pulse Resp B/P (MAP) Pulse Ox O2 Delivery O2 Flow Rate FiO2 04/30/24 11:20 72 134/93 04/30/24 09:00 97.4 16 100 97.4 04/29/24 08:00 Room Air* 0 21 Total Intake and Output 04/29/24 04/29/24 04/30/24 15:00 23:00 07:00 Intake Total 250 ml 1500 ml 460 ml Output Total 2850 ml 50 ml Balance 250 ml -1350 ml 410 ml medications Current Medications Medications Dose Ordered Sig/Aparna Route Start Time Stop Time Status Last Admin Dose Admin Acetaminophen/ Hydrocodone Bitart 1 tab Q4HP PRN PO 04/28/24 14:30 04/30/24 04:20 1 TAB Ondansetron HCl 4 mg Q4HP PRN IV 04/28/24 14:30 Nitroglycerin 0.4 mg Q5MINP PRN SL 04/28/24 14:30 04/28/24 22:01 0.4 MG Morphine Sulfate 2 mg Q30M PRN IV 04/28/24 14:30 Labetalol HCl 5 mg Q2HPRN PRN IV 04/28/24 14:30 04/28/24 20:51 5 MG Furosemide 20 mg BIDD IV 04/28/24 18:00 04/30/24 06:39 20 MG Potassium Chloride 20 meq DAILY PO 04/29/24 10:00 04/30/24 11:19 20 MEQ Diagnostic Test (Pha) 1 strip ACHS 04/28/24 17:00 04/30/24 11:22 1 STRIP Insulin Human Regular HS SC 04/28/24 22:00 04/29/24 21:43 6 UNITS Insulin Human Regular AC SC 04/28/24 17:00 04/30/24 11:21 2 UNITS Dextrose 50 ml UD PRN IV 04/28/24 14:45 Metoprolol Tartrate 25 mg BID PO 04/29/24 22:00 04/30/24 11:20 25 MG Lorazepam 0.5 mg Q6HP PRN PO 04/30/24 00:00 04/30/24 00:14 0.5 MG Lorazepam 0.5 mg Q8HP PO 04/30/24 20:00 UNV Al Hydrox/Mg Hydrox/Simethicone 30 ml Q4HP PRN PO 04/30/24 12:00 Examination: CVS:Abnormal (+2 BLE edema. Diuresing well. Murmur) laboratory and microbiology Laboratory Tests 04/30/24 08:25 04/29/24 05:27 Test 04/30/24 08:25 Range/Units Serum Glucose 126 H 74-106 mg/dL Problem List/Assessment/Plan Problem List/Assessment/Plan Assessment * Acute systolic HF, RV failure - echo showing EF 20% is dilated LV and severe global dysfunction. RV dysfunction., continue diuresing with Lasix, increased to 40 mg IV twice daily. Monitor strict I&Os. Continue fluid restriction. Recommend cardiac catheterization +/- PCI. All risks, benefits, and alternatives of cardiac catheterization explained to the patient including the risk of stroke, ME, , coronary perforation, pericardial tamponade, contrast induced nephropathy, need for emergent CABG, mechanical support, mechanical ventilation, and bleeding from vascular complications from the procedure. Patient is agreeable to proceed with procedure. * HTN - continue metoprolol 25 mg p.o. b.i.d. * PACs, Sinus Arrythmia - metoprolol 25 mg p.o. twice daily. * DM -management per primary team. * Hypokalemia - monitoring replace electrolytes. * BLE Edema - US R/O DVT * Severe Aortic Stenosis - continue diuresing. Plan for FLORA in a.m.. Recommend outpatient follow-up for SAVR versus TAVR workup. Case Discussed with Dr Brito. Lasix increased to 40 mg IV twice daily. Fluid restriction added. Patient with still significant shortness of breath with exertion. Echo showing new onset of severely reduced LV systolic function with EF 20%. Dilated LV. Severe global dysfunction. Severe aortic stenosis with severe TR. Plan for cardiac workup with coronary angiogram in a.m. patient to also undergo FLORA for further aortic valve evaluation. NPO after midnight. Critical care, time spent: 48 minutes This medical document was created using an electronic medical record system with voice recognition software and computerized dictation system. Although this document has been carefully reviewed, there might still be some phonetic and typographical errors. Occasional wrong-word or ``sound-alike substitutions may have occurred due to the inherent limitations of voice recognition software. These areas are purely typographical due to imperfections of the software programs and do not reflect any compromise in the patient's medical care. Please read the chart carefully and recognize, using context, where these substitutions have occurred. Plan discussed with: Patient Date of Service: Apr 30, 2024 Billing Provider: INGA CHURCH Common Visit Codes: [id number] INP/OBS CARE(HIGH), [id number] CARE 30-74 MIN INGA CHURCH Apr 30, 2024 12:23
[2024-04-30] MEDS: FUROSEMIDE 20 MG/2 ML VIAL IV ONE (15:25)
[2024-04-30] MEDS: MAALOX PLUS or MAALOX 30 ML PO PRN (15:38)
[2024-04-30] MEDS: FUROSEMIDE 40 MG/4 ML VIAL IV SCH (17:17)
[2024-04-30] MEDS: LORazepam 0.5 MG TAB PO SCH (20:00)
[2024-05-01] VITALS (13 sets, daily range): BP systolic 105–137; BP diastolic 71–92; PULSE 58–85; RESP 12–20; TEMP 97.7–98.4; O2SAT 94–100
[2024-05-01] MEDS: LIDOCAINE VISCOUS 2% 15ML UD PO ONE (09:15)
[2024-05-01] MEDS: MIDAZOLAM HCL 5 MG/ML-1ML VIAL IM ONE (09:15)
[2024-05-01] MEDS: fentaNYL CITRATE 100 MCG/2 ML VL IV ONE (09:15)
[2024-05-01] MEDS: MIDAZOLAM HCL 2MG/2ML 2ml VIAL (1mg/ml) ONE (09:35)
[2024-05-01] MEDS: IODIXANOL 320MG/ML 100ML BTL IV ONE (09:37)
--- NOTE | 2024-05-01 10:26 | DVHOP2 ---
Operative Report Operative Report CARDIAC BALLISTICS PROFESSOR PROCEDURE REPORT [place], [place] Date of Service: 05/01/24 [employer] Supervisor: Lucio Davalos MD PROCEDURES PERFORMED: trans esophageal echocardiogram, conscious sedation <15 mins, doppler assesment complete ADAIR, PREOPERATIVE DIAGNOSES: aortic stenosis POSTOP DIAGNOSIS: aortic stenosis DESCRIPTION OF PROCEDURE: The patient or appropriate family signed informed consent understanding the risks, benefits and alternatives of the procedure, they wished to proceed. The patient was brought to the cardiac skilled laborer in n.p.o. state. the patient was given 15 ml of oral viscous lidocaine. the patient was placed in a left lateral decubitus position with bite block in mouth. NExt conscious sedation was administered per skilled laborer protocol with _2_ mg of versed and __50_ mcg of fentanyl. Next a ADAIR probe was advanced to the mid esophagus with ease and multiple planar images obtained. At the completion of the procedure , probe was removed and there were no immediate complications. FINDINGS: Left Ventricle: Normal LV size and severe dysfunction. LVEF 20% with global dysfunction Right Ventricle: RV enlarged and RV dysfunction moderate Left atrium: enlarged, smoke in [place] Right atrium: mild enlarged Left atrial appendage: there is a calcified nodule vs thrombus on the lateral wall of the NATHALIA, there is no obvious thrombus in distal appendage however. decreased velocity on PW monitoring Aortic valve: trileaflet valve likely? heavily calcified, restricted motion, no severe AI, likely signficant , no gradient done on adair Mitral Valve: structurally normal, mild to moderate mitral regurg, no MS Tricuspid Valve: moderate tricuspid regurgitaiton which could be underestimated , no TS Pulmonic Valve: strucutrally normal, no severe PIor PS Interatrial septum: negative color flow for R to L shunt and negative bubble study Ascending aorta: mild plaquing PLAN fu [facility] consider 3 months DOAC for NATHALIA ?thrombus vs nodule although pt is SR , given lot of LA smoke, severe chf and valvular heart disease consider doac and repeat adair LUCIO DAVALOS MD May 01, 2024 10:26
--- NOTE | 2024-05-01 10:41 | DVHOP2 ---
Operative Report Operative Report CARDIAC BOOKBINDER APPRENTICE PROCEDURE REPORT [place], [place] Date of Service: 05/01/2024 Assistant Director: Hiren Davalos MD PROCEDURES PERFORMED: Coronary angiogram,conscious sedation administration and supervision, less than 15 minutes; fluoroscopy use and interpretation. PREOPERATIVE DIAGNOSES: severe POSTOP DIAGNOSIS: same DESCRIPTION OF PROCEDURE: The patient or appropriate family signed informed consent understanding the risks, benefits and alternatives of the procedure, they wished to proceed. The patient was brought to the cardiac laboratory immunologist in n.p.o. state. The patient was prepped in a sterile fashion. Sedation was used per cardiac cath protocol. I administered 2 mL of 2% lidocaine to the right wrist. With an antegrade front wall puncture. I cannulated the right radial artery and placed a 6-Liberian [place] slender. Next, an intra-arterial spasmolytic was administered. Next, a - 5 [place] catheter and were used for coronary angiogram. At the completion of procedure, all guides and wires were removed, and there were no immediate complications.4000 U of IV heparin admin. FINDINGS: RCA: very large vessel off the right sinus of Valsalva, there is no severe flow limiting stenosis. it is dominant. prox RCA 20% stenosis, distal RCA has 30% stenosis LEFT MAIN: Moderate size left main, it bifurcates into LAD and circumflex. no severe stenosis CIRCUMFLEX: Moderate caliber vessel coming off the left main with no flow limiting stenosis. early take off OM1 that bifurcates distally LAD: LAD is a moderate caliber vessel coming of the left main. its free of significant disease. D1 is moderate vessel with ostial calcific 40-50% stenosis CONCLUSIONS: 1. no severe epicardial CAD PLAN: Aggressive risk factor modification and medical management for the patient. TAVR eval outpt aortic valve CT and referral HIREN DAVALOS MD May 01, 2024 10:41
--- NOTE | 2024-05-01 10:49 | DVHPN2 ---
Progress Note Date Seen: May 01, 2024 Medical Necessity Reason Pt with a Central, PICC or Fol: No Subjective Patient reports: Feels better Objective vital signs Vital Sign Date Time Temp Pulse Resp B/P (MAP) Pulse Ox O2 Delivery O2 Flow Rate FiO2 05/01/24 09:26 97.7 67 16 132/89 (103) 94 97.7 04/30/24 20:00 Room Air* 0 21 Total Intake and Output 04/30/24 04/30/24 05/01/24 15:00 23:00 07:00 Intake Total 1050 ml Output Total 1200 ml 60 ml Balance -150 ml -60 ml medications Current Medications Medications Dose Ordered Sig/Aparna Route Start Time Stop Time Status Last Admin Dose Admin Acetaminophen/ Hydrocodone Bitart 1 tab Q4HP PRN PO 04/28/24 14:30 04/30/24 04:20 1 TAB Ondansetron HCl 4 mg Q4HP PRN IV 04/28/24 14:30 Nitroglycerin 0.4 mg Q5MINP PRN SL 04/28/24 14:30 04/28/24 22:01 0.4 MG Morphine Sulfate 2 mg Q30M PRN IV 04/28/24 14:30 Labetalol HCl 5 mg Q2HPRN PRN IV 04/28/24 14:30 04/28/24 20:51 5 MG Potassium Chloride 20 meq DAILY PO 04/29/24 10:00 04/30/24 11:19 20 MEQ Diagnostic Test (Pha) 1 strip ACHS 04/28/24 17:00 05/01/24 05:40 1 STRIP Insulin Human Regular HS SC 04/28/24 22:00 04/30/24 21:22 3 UNITS Insulin Human Regular AC SC 04/28/24 17:00 04/30/24 11:21 2 UNITS Dextrose 50 ml UD PRN IV 04/28/24 14:45 Metoprolol Tartrate 25 mg BID PO 04/29/24 22:00 04/30/24 21:31 25 MG Lorazepam 0.5 mg Q6HP PRN PO 04/30/24 00:00 04/30/24 00:14 0.5 MG Lorazepam 0.5 mg Q8HP PO 04/30/24 20:00 04/30/24 21:31 0.5 MG Al Hydrox/Mg Hydrox/Simethicone 30 ml Q4HP PRN PO 04/30/24 12:00 04/30/24 15:38 30 ML Furosemide 40 mg BIDD IV 04/30/24 18:00 05/01/24 05:40 40 MG Examination: GENERAL:Abnormal, HEENT:Abnormal, LUNGS:Abnormal, CVS:Abnormal, ABDOMEN:Abnormal laboratory and microbiology Laboratory Tests 04/30/24 08:25 04/29/24 05:27 Test 04/30/24 08:25 Range/Units Serum Glucose 126 H 74-106 mg/dL Problem List/Assessment/Plan Problem List/Assessment/Plan severe suspectd low flow low gradient severe chf possible LA thrombus htn HL recommend dc home on eliquis 5 mg po bid as her adair report x 3 months statin beta martina entresto russ fu with me 2 weeks Plan discussed with: Patient My Orders My Orders Orders - HIREN DAVALOS MD Procedure Category Date Status Time Cl Left Heart Cath CL 05/01/24 Taken 07:31 Date of Service: May 01, 2024 Billing Provider: HIREN DAVALOS MD Common Visit Codes: NOT BILLABLE HIREN DAVALOS MD May 01, 2024 10:49
[2024-05-01] MEDS: ANGIOMAX 250 MG VIAL IV ONE (10:50)
[2024-05-01] MEDS: SODIUM CHL 0.9% 0 ML ONE (10:50)
[2024-05-01] MEDS: VERAPAMIL 2.5MG/ML INJ 2ML VIAL IV ONE (10:50)
[2024-05-01] MEDS: LIDOCAINE 2%HCL (LOCAL ANESTH.) INJ 20ML MDV ONE (10:51)
--- NOTE | 2024-05-01 13:25 | DVHPN2 ---
Reviewed: Care Plan, H&P, Labs, Medications, Previous Orders, Radiology Changes from previous H/P or p: No Changes Eyes: No Pain, No Vision change, No Conjunctivae inflammation, No Eyelid inflammation, No Other, No Redness ENT: No Ear pain, No Ear discharge, No Nose pain, No Nose discharge, No Nose congestion, No Mouth pain, No Mouth swelling, No Throat pain, No Throat swelling, No Other Cardiovascular: Chest Pain; No Palpitations, No Orthopnea, No Paroxysmal Noc. Dyspnea; Edema (Bilateral lower extremity and abdominal); No Lt Headedness, No Other Respiratory: No Cough, No Dry, No Shortness of breath, No SOB with excertion, No Wheezing, No Hemoptysis, No Pleuritic Pain, No Sputum, No Other Gastrointestinal: No Nausea, No Vomiting, No Abdominal Pain, No Diarrhea, No Constipation, No Melena, No Hematochezia, No Other Genitourinary: No Dysuria, No Frequency, No Incontinence, No Hematuria, No Retention, No Other Musculoskeletal: No other, No neck pain, No shoulder pain, No arm pain, No back pain, No hand pain, No leg pain, No foot pain Skin: No Rash, No Lesions, No Jaundice, No Bruising, No Other Objective Vitals Vital Signs Date Time Temp Pulse Resp B/P (MAP) Pulse Ox O2 Delivery O2 Flow Rate FiO2 05/01/24 09:26 97.7 67 16 132/89 (103) 94 97.7 04/30/24 20:00 Room Air* 0 21 Intake/Output Intake and Output 05/01/24 07:00 Intake Total 1050 ml Output Total 1260 ml Balance -210 ml Intake Oral 1050 ml Output Urine Total 1260 ml Medications Current Medications Medications Dose Ordered Sig/Aparna Route Start Time Stop Time Status Last Admin Dose Admin Acetaminophen/ Hydrocodone Bitart 1 tab Q4HP PRN PO 04/28/24 14:30 04/30/24 04:20 1 TAB Ondansetron HCl 4 mg Q4HP PRN IV 04/28/24 14:30 Nitroglycerin 0.4 mg Q5MINP PRN SL 04/28/24 14:30 04/28/24 22:01 0.4 MG Morphine Sulfate 2 mg Q30M PRN IV 04/28/24 14:30 Labetalol HCl 5 mg Q2HPRN PRN IV 04/28/24 14:30 04/28/24 20:51 5 MG Potassium Chloride 20 meq DAILY PO 04/29/24 10:00 05/01/24 12:20 20 MEQ Diagnostic Test (Pha) 1 strip ACHS 04/28/24 17:00 05/01/24 11:30 1 STRIP Insulin Human Regular HS SC 04/28/24 22:00 04/30/24 21:22 3 UNITS Insulin Human Regular AC SC 04/28/24 17:00 04/30/24 11:21 2 UNITS Dextrose 50 ml UD PRN IV 04/28/24 14:45 Metoprolol Tartrate 25 mg BID PO 04/29/24 22:00 04/30/24 21:31 25 MG Lorazepam 0.5 mg Q6HP PRN PO 04/30/24 00:00 04/30/24 00:14 0.5 MG Lorazepam 0.5 mg Q8HP PO 04/30/24 20:00 04/30/24 21:31 0.5 MG Al Hydrox/Mg Hydrox/Simethicone 30 ml Q4HP PRN PO 04/30/24 12:00 04/30/24 15:38 30 ML Furosemide 40 mg BIDD IV 04/30/24 18:00 05/01/24 05:40 40 MG Apixaban 5 mg BID PO 05/01/24 22:00 Laboratory Results Laboratory Tests 04/29/24 05:27 04/30/24 08:25 Labs and/or images reviewed: Labs reviewed by me, Image(s) reviewed by me Assessment/Plan Assessment/Plan Acute systolic CHF exacerbation ejection fraction 20 % continue Lasix consult by Dr. Brito appreciated Severe aortic stenosis; by FLORA Status post left heart catheterization by Dr. Brito found to have normal coronaries; recommended discharge on Eliquis 5 mg p.o. b.i.d. for three months Lipitor metoprolol Entresto and Jardiance HTN - continue metoprolol 25 mg p.o. b.i.d. PACs, Sinus Arrythmia - metoprolol 25 mg p.o. twice daily. Type 2 diabetes: Insulin sliding scale Hypokalemia - monitoring replace electrolytes. BLE Edema DVT ruled out CT abdomen pelvis without contrast negative Time spent 45 minutes Patient is full code Advanced care planning time 20 minutes Flu Test negative Julia test negative Patient lives alone in [place], is a vegan, interested in astronomy Pt was seen by Dr [facility] group four days back. Plan discussed with: Patient Date of Service: May 01, 2024 Billing Provider: KIANNA MARIE MD Common Visit Codes: [id number] INP/OBS CARE(HIGH) KIANNA MARIE MD May 01, 2024 13:25
[2024-05-01] MEDS: APIXABAN 5 MG TAB PO SCH (21:43)
[2024-05-02] VITALS (8 sets, daily range): BP systolic 120–136; BP diastolic 75–88; PULSE 72–94; RESP 17–20; TEMP 96.3–98.5; O2SAT 90–99
--- NOTE | 2024-05-02 12:07 | DVHPN2 ---
Reviewed: Care Plan, H&P, Labs, Medications, Previous Orders, Radiology Changes from previous H/P or p: No Changes Eyes: No Pain, No Vision change, No Conjunctivae inflammation, No Eyelid inflammation, No Other, No Redness ENT: No Ear pain, No Ear discharge, No Nose pain, No Nose discharge, No Nose congestion, No Mouth pain, No Mouth swelling, No Throat pain, No Throat swelling, No Other Cardiovascular: Chest Pain; No Palpitations, No Orthopnea, No Paroxysmal Noc. Dyspnea; Edema (Bilateral lower extremity and abdominal); No Lt Headedness, No Other Respiratory: No Cough, No Dry, No Shortness of breath, No SOB with excertion, No Wheezing, No Hemoptysis, No Pleuritic Pain, No Sputum, No Other Gastrointestinal: No Nausea, No Vomiting, No Abdominal Pain, No Diarrhea, No Constipation, No Melena, No Hematochezia, No Other Genitourinary: No Dysuria, No Frequency, No Incontinence, No Hematuria, No Retention, No Other Musculoskeletal: No other, No neck pain, No shoulder pain, No arm pain, No back pain, No hand pain, No leg pain, No foot pain Skin: No Rash, No Lesions, No Jaundice, No Bruising, No Other Objective Vitals Vital Signs Date Time Temp Pulse Resp B/P (MAP) Pulse Ox O2 Delivery O2 Flow Rate FiO2 05/02/24 09:35 78 135/85 05/02/24 08:00 Room Air* 0 21 05/02/24 05:00 98.2 18 96 98.2 Intake/Output Intake and Output 05/02/24 07:00 Intake Total 1500 ml Output Total 2800 ml Balance -1300 ml Intake Oral 1500 ml Output Urine Total 2800 ml # Voids 3 # Bowel Movements 1 Medications Current Medications Medications Dose Ordered Sig/Aparna Route Start Time Stop Time Status Last Admin Dose Admin Acetaminophen/ Hydrocodone Bitart 1 tab Q4HP PRN PO 04/28/24 14:30 04/30/24 04:20 1 TAB Ondansetron HCl 4 mg Q4HP PRN IV 04/28/24 14:30 Nitroglycerin 0.4 mg Q5MINP PRN SL 04/28/24 14:30 04/28/24 22:01 0.4 MG Morphine Sulfate 2 mg Q30M PRN IV 04/28/24 14:30 Labetalol HCl 5 mg Q2HPRN PRN IV 04/28/24 14:30 04/28/24 20:51 5 MG Potassium Chloride 20 meq DAILY PO 04/29/24 10:00 05/02/24 09:35 20 MEQ Diagnostic Test (Pha) 1 strip ACHS 04/28/24 17:00 05/02/24 11:08 1 STRIP Insulin Human Regular HS SC 04/28/24 22:00 05/01/24 21:48 3 UNITS Insulin Human Regular AC SC 04/28/24 17:00 05/02/24 05:59 2 UNITS Dextrose 50 ml UD PRN IV 04/28/24 14:45 Metoprolol Tartrate 25 mg BID PO 04/29/24 22:00 05/02/24 09:35 25 MG Lorazepam 0.5 mg Q6HP PRN PO 04/30/24 00:00 04/30/24 00:14 0.5 MG Lorazepam 0.5 mg Q8HP PO 04/30/24 20:00 05/02/24 05:58 0.5 MG Al Hydrox/Mg Hydrox/Simethicone 30 ml Q4HP PRN PO 04/30/24 12:00 04/30/24 15:38 30 ML Furosemide 40 mg BIDD IV 04/30/24 18:00 05/02/24 05:58 40 MG Apixaban 5 mg BID PO 05/01/24 22:00 05/02/24 09:35 5 MG Laboratory Results Laboratory Tests 04/29/24 05:27 04/30/24 08:25 Labs and/or images reviewed: Labs reviewed by me, Image(s) reviewed by me Assessment/Plan Assessment/Plan Acute systolic CHF exacerbation ejection fraction 20 % continue Lasix consult by Dr. Brito appreciated Severe aortic stenosis; by FLORA Status post left heart catheterization by Dr. Brito found to have normal coronaries; recommended discharge on Eliquis 5 mg p.o. b.i.d. for three months Lipitor metoprolol Entresto and Jardiance HTN - continue metoprolol 25 mg p.o. b.i.d. PACs, Sinus Arrythmia - metoprolol 25 mg p.o. twice daily. Type 2 diabetes: Insulin sliding scale Hypokalemia - monitoring replace electrolytes. BLE Edema DVT ruled out CT abdomen pelvis without contrast negative Time spent 45 minutes Patient is full code Advanced care planning time 20 minutes Noncompliance: Patient has not seen any doctor for the last many years Flu Test negative Julia test negative Patient lives alone in [place], is a vegan, interested in astronomy Pt was seen by Dr [facility]e [facility] four days back. Plan discussed with: Patient Date of Service: May 02, 2024 Billing Provider: KIANNA MARIE MD Common Visit Codes: [id number] INP/OBS CARE(HIGH) KIANNA MARIE MD May 02, 2024 12:07
--- NOTE | 2024-05-02 12:20 | DVHPN2 ---
Progress Note Date Seen: May 02, 2024 Medical Necessity Reason Pt with a Central, PICC or Fol: No Subjective Patient reports: Feels better Objective vital signs Vital Sign Date Time Temp Pulse Resp B/P (MAP) Pulse Ox O2 Delivery O2 Flow Rate FiO2 05/02/24 09:35 78 135/85 05/02/24 08:00 Room Air* 0 21 05/02/24 05:00 98.2 18 96 98.2 Total Intake and Output 05/01/24 05/01/24 05/02/24 15:00 23:00 07:00 Intake Total 600 ml 900 ml Output Total 700 ml 750 ml 1350 ml Balance -700 ml -150 ml -450 ml medications Current Medications Medications Dose Ordered Sig/Aparna Route Start Time Stop Time Status Last Admin Dose Admin Acetaminophen/ Hydrocodone Bitart 1 tab Q4HP PRN PO 04/28/24 14:30 04/30/24 04:20 1 TAB Ondansetron HCl 4 mg Q4HP PRN IV 04/28/24 14:30 Nitroglycerin 0.4 mg Q5MINP PRN SL 04/28/24 14:30 04/28/24 22:01 0.4 MG Morphine Sulfate 2 mg Q30M PRN IV 04/28/24 14:30 Labetalol HCl 5 mg Q2HPRN PRN IV 04/28/24 14:30 04/28/24 20:51 5 MG Potassium Chloride 20 meq DAILY PO 04/29/24 10:00 05/02/24 09:35 20 MEQ Diagnostic Test (Pha) 1 strip ACHS 04/28/24 17:00 05/02/24 11:08 1 STRIP Insulin Human Regular HS SC 04/28/24 22:00 05/01/24 21:48 3 UNITS Insulin Human Regular AC SC 04/28/24 17:00 05/02/24 11:56 2 UNITS Dextrose 50 ml UD PRN IV 04/28/24 14:45 Metoprolol Tartrate 25 mg BID PO 04/29/24 22:00 05/02/24 09:35 25 MG Lorazepam 0.5 mg Q6HP PRN PO 04/30/24 00:00 04/30/24 00:14 0.5 MG Lorazepam 0.5 mg Q8HP PO 04/30/24 20:00 05/02/24 05:58 0.5 MG Al Hydrox/Mg Hydrox/Simethicone 30 ml Q4HP PRN PO 04/30/24 12:00 04/30/24 15:38 30 ML Furosemide 40 mg BIDD IV 04/30/24 18:00 05/02/24 05:58 40 MG Apixaban 5 mg BID PO 05/01/24 22:00 05/02/24 09:35 5 MG Examination: GENERAL:Abnormal, HEENT:Abnormal, LUNGS:Abnormal, CVS:Abnormal, ABDOMEN:Normal, ABDOMEN:Abnormal laboratory and microbiology Laboratory Tests 04/30/24 08:25 04/29/24 05:27 Test 04/30/24 08:25 Range/Units Serum Glucose 126 H 74-106 mg/dL Problem List/Assessment/Plan Problem List/Assessment/Plan severe suspectd low flow low gradient severe chf possible LA thrombus htn HL recommend dc home on eliquis 5 mg po bid as her adair report x 3 months statin beta martina entresto jardiance fu with me 2 weeks Plan discussed with: Patient My Orders My Orders Orders - HIREN DAVALOS MD Procedure Category Date Status Time Consistent DIET 05/02/24 Transmitted Carb([facility])Diabetes Lunch Date of Service: May 02, 2024 Billing Provider: HIREN DAVALOS MD Common Visit Codes: NOT BILLABLE HIREN DAVALOS MD May 02, 2024 12:20
[2024-05-03 01:00] VITALS: BP 103/61; PULSE 71; RESP 16; TEMP 98.3; O2SAT 98
[2024-05-03 05:00] VITALS: BP 115/63; PULSE 72; RESP 18; TEMP 98.2; O2SAT 98
--- NOTE | 2024-05-03 07:40 | DVHPN2 ---
Progress Note Date Seen: May 03, 2024 Medical Necessity Reason Pt with a Central, PICC or Fol: No Subjective Patient reports: Feels better Objective vital signs Vital Sign Date Time Temp Pulse Resp B/P (MAP) Pulse Ox O2 Delivery O2 Flow Rate FiO2 05/03/24 06:39 115/63 05/03/24 05:00 98.2 72 18 98 98.2 05/02/24 20:00 Room Air* 0 21 Total Intake and Output 05/02/24 05/02/24 05/03/24 15:00 23:00 07:00 Intake Total 675 ml 650 ml Output Total 2100 ml 1500 ml Balance -1425 ml -850 ml medications Current Medications Medications Dose Ordered Sig/Aparna Route Start Time Stop Time Status Last Admin Dose Admin Acetaminophen/ Hydrocodone Bitart 1 tab Q4HP PRN PO 04/28/24 14:30 04/30/24 04:20 1 TAB Ondansetron HCl 4 mg Q4HP PRN IV 04/28/24 14:30 Nitroglycerin 0.4 mg Q5MINP PRN SL 04/28/24 14:30 04/28/24 22:01 0.4 MG Morphine Sulfate 2 mg Q30M PRN IV 04/28/24 14:30 Labetalol HCl 5 mg Q2HPRN PRN IV 04/28/24 14:30 04/28/24 20:51 5 MG Potassium Chloride 20 meq DAILY PO 04/29/24 10:00 05/02/24 09:35 20 MEQ Diagnostic Test (Pha) 1 strip ACHS 04/28/24 17:00 05/03/24 06:47 1 STRIP Insulin Human Regular HS SC 04/28/24 22:00 05/02/24 21:22 2 UNITS Insulin Human Regular AC SC 04/28/24 17:00 05/02/24 11:56 2 UNITS Dextrose 50 ml UD PRN IV 04/28/24 14:45 Metoprolol Tartrate 25 mg BID PO 04/29/24 22:00 05/02/24 21:12 25 MG Lorazepam 0.5 mg Q6HP PRN PO 04/30/24 00:00 04/30/24 00:14 0.5 MG Lorazepam 0.5 mg Q8HP PO 04/30/24 20:00 05/03/24 06:38 0.5 MG Al Hydrox/Mg Hydrox/Simethicone 30 ml Q4HP PRN PO 04/30/24 12:00 04/30/24 15:38 30 ML Furosemide 40 mg BIDD IV 04/30/24 18:00 05/03/24 06:39 40 MG Apixaban 5 mg BID PO 05/01/24 22:00 05/02/24 21:12 5 MG Examination: GENERAL:Abnormal, HEENT:Abnormal, LUNGS:Abnormal, CVS:Abnormal, ABDOMEN:Abnormal laboratory and microbiology Laboratory Tests 04/30/24 08:25 04/29/24 05:27 Test 04/30/24 08:25 Range/Units Serum Glucose 126 H 74-106 mg/dL Problem List/Assessment/Plan Problem List/Assessment/Plan severe suspectd low flow low gradient severe chf possible LA thrombus htn HL recommend dc home on eliquis 5 mg po bid as her adair report x 3 months statin beta martina entresto jardiance fu with me 2 weeks Plan discussed with: Patient My Orders My Orders Orders - HIREN DAVALOS MD Procedure Category Date Status Time Consistent DIET 05/02/24 Transmitted [facility]Diabetes Lunch Date of Service: May 03, 2024 Billing Provider: HIREN DAVALOS MD Common Visit Codes: NOT BILLABLE HIREN DAVALOS MD May 03, 2024 07:40
[2024-05-03 07:45] VITALS: RESP 14
[2024-05-03 08:00] VITALS: PULSE 79
[2024-05-03 09:00] VITALS: BP 136/82; PULSE 82; RESP 19; TEMP 97.7; O2SAT 93
--- NOTE | 2024-05-03 11:58 | DVHPN2 ---
Reviewed: Care Plan, H&P, Labs, Medications, Previous Orders, Radiology Changes from previous H/P or p: No Changes Eyes: No Pain, No Vision change, No Conjunctivae inflammation, No Eyelid inflammation, No Other, No Redness ENT: No Ear pain, No Ear discharge, No Nose pain, No Nose discharge, No Nose congestion, No Mouth pain, No Mouth swelling, No Throat pain, No Throat swelling, No Other Cardiovascular: Chest Pain; No Palpitations, No Orthopnea, No Paroxysmal Noc. Dyspnea; Edema (Bilateral lower extremity and abdominal); No Lt Headedness, No Other Respiratory: No Cough, No Dry, No Shortness of breath, No SOB with excertion, No Wheezing, No Hemoptysis, No Pleuritic Pain, No Sputum, No Other Gastrointestinal: No Nausea, No Vomiting, No Abdominal Pain, No Diarrhea, No Constipation, No Melena, No Hematochezia, No Other Genitourinary: No Dysuria, No Frequency, No Incontinence, No Hematuria, No Retention, No Other Musculoskeletal: No other, No neck pain, No shoulder pain, No arm pain, No back pain, No hand pain, No leg pain, No foot pain Skin: No Rash, No Lesions, No Jaundice, No Bruising, No Other Objective Vitals Vital Signs Date Time Temp Pulse Resp B/P (MAP) Pulse Ox O2 Delivery O2 Flow Rate FiO2 05/03/24 09:00 97.7 82 19 136/82 (100) 93 97.7 05/03/24 07:45 Nasal Cannula* 2 28 Intake/Output Intake and Output 05/03/24 07:00 Intake Total 1325 ml Output Total 3600 ml Balance -2275 ml Intake Oral 1325 ml Output Urine Total 3600 ml # Bowel Movements 3 Medications Current Medications Medications Dose Ordered Sig/Aparna Route Start Time Stop Time Status Last Admin Dose Admin Acetaminophen/ Hydrocodone Bitart 1 tab Q4HP PRN PO 04/28/24 14:30 04/30/24 04:20 1 TAB Ondansetron HCl 4 mg Q4HP PRN IV 04/28/24 14:30 Nitroglycerin 0.4 mg Q5MINP PRN SL 04/28/24 14:30 04/28/24 22:01 0.4 MG Morphine Sulfate 2 mg Q30M PRN IV 04/28/24 14:30 Labetalol HCl 5 mg Q2HPRN PRN IV 04/28/24 14:30 04/28/24 20:51 5 MG Potassium Chloride 20 meq DAILY PO 04/29/24 10:00 05/03/24 08:49 20 MEQ Diagnostic Test (Pha) 1 strip ACHS 04/28/24 17:00 05/03/24 11:32 1 STRIP Insulin Human Regular HS SC 04/28/24 22:00 05/02/24 21:22 2 UNITS Insulin Human Regular AC SC 04/28/24 17:00 05/03/24 11:32 3 UNITS Dextrose 50 ml UD PRN IV 04/28/24 14:45 Metoprolol Tartrate 25 mg BID PO 04/29/24 22:00 05/03/24 08:49 25 MG Lorazepam 0.5 mg Q6HP PRN PO 04/30/24 00:00 04/30/24 00:14 0.5 MG Lorazepam 0.5 mg Q8HP PO 04/30/24 20:00 05/03/24 06:38 0.5 MG Al Hydrox/Mg Hydrox/Simethicone 30 ml Q4HP PRN PO 04/30/24 12:00 04/30/24 15:38 30 ML Furosemide 40 mg BIDD IV 04/30/24 18:00 05/03/24 06:39 40 MG Apixaban 5 mg BID PO 05/01/24 22:00 05/03/24 08:49 5 MG Laboratory Results Laboratory Tests 04/29/24 05:27 04/30/24 08:25 Labs and/or images reviewed: Labs reviewed by me, Image(s) reviewed by me Assessment/Plan Assessment/Plan Acute systolic CHF exacerbation ejection fraction 20 % continue Lasix consult by Dr. Brito appreciated Severe aortic stenosis; by FLORA Status post left heart catheterization by Dr. Brito found to have normal coronaries; recommended discharge on Eliquis 5 mg p.o. b.i.d. for three months Lipitor metoprolol Entresto and Jardiance HTN - continue metoprolol 25 mg p.o. b.i.d. PACs, Sinus Arrythmia - metoprolol 25 mg p.o. twice daily. Type 2 diabetes: Insulin sliding scale Hypokalemia - monitoring replace electrolytes. BLE Edema DVT ruled out CT abdomen pelvis without contrast negative Time spent 45 minutes Patient is full code Advanced care planning time 20 minutes Noncompliance: Patient has not seen any doctor for the last many years Flu Test negative Julia test negative Patient lives alone in [place], is a vegan, interested in astronomy Patient's daughter Dianne at bed side [phone] and discussed at length with the patient about going to [facility] facility for rehab. He does not want and wants to be discharged home on home health Plan discussed with: Patient Date of Service: May 03, 2024 Billing Provider: KIANNA MARIE MD Common Visit Codes: [id number] CARE 30-74 MIN KIANNA MARIE MD May 03, 2024 11:58
--- NOTE | 2024-05-03 12:10 | CONS ---
Pharmacy Clinical Information: CQM HF report. Patient has a new CHF diagnosis, per customer experience intern's note, will be started on statin, BB, entresto and jardiance at discharge. Patient likely started on non-EBBB due to short acting mechanism for arrhythmia and might be switched to EBBB once discharged. Consider initiating MRA at this time as the patient's current labs do not indicate hyperkalemia or renal insufficiency. DG ARROYO PHARMACIST May 03, 2024 12:10
[2024-05-03 13:00] VITALS: BP 138/81; PULSE 66; RESP 19; TEMP 97.5; O2SAT 93
[2024-05-03] MEDS ORDERED: FURO1TAB31 PO (13:27)
[2024-05-03] MEDS ORDERED: POTA-36 PO (13:27)
[2024-05-03] MEDS ORDERED: APIX5TAB PO (13:27)
[2024-05-03] MEDS ORDERED: METO25TA5 PO (13:27)
--- NOTE | 2024-05-03 13:32 | DVHDS2 ---
Discharge Summary Date of Admission Apr 28, 2024 at 14:26 Date of Discharge: May 03, 2024 Admitting Diagnosis Shortness of breath and chest pain Wounds: Left heart catheterization Labs/Diagnostic Data: Laboratory Results Test 05/03/24 11:18 04/30/24 08:25 04/29/24 14:20 04/29/24 05:27 POC Glucose 186 mg/dl (70-106) Sodium Level 136 mmol/L (136-145) Potassium Level 4.1 mmol/L (3.5-5.1) Chloride Level 102 mmol/L (98-107) Carbon Dioxide Level 23 mmol/L (20-31) Anion Gap 11 (5-15) Blood Urea Nitrogen 16 mg/dL (9-23) Creatinine 1.27 mg/dL (0.700-1.30) Glomerular Filtration Rate Calc 58 mL/min (>90) BUN/Creatinine Ratio 12.6 (10.0-20.0) Serum Glucose 126 mg/dL (74-106) Calcium Level 9.5 mg/dL (8.7-10.4) Magnesium Level 1.8 mg/dL (1.6-2.6) D-Dimer, Quantitative 0.57 mg/L FEU (0.0-0.49) White Blood Count 6.4 10^3/uL (4.4-10.8) Red Blood Count 4.54 10^6/uL (4.5-5.90) Hemoglobin 14.0 g/dL (13.5-17.5) Hematocrit 40.9 % (41.0-53.0) Mean Corpuscular Volume 90.1 fL (80.0-100.0) Mean Corpuscular Hemoglobin 30.8 pg (28.0-32.0) Mean Corpuscular Hemoglobin Concent 34.1 g/dL (32.0-36.0) Red Cell Distribution Width 15.2 % (11.8-14.3) Platelet Count 222 10^3/uL (140-450) Mean Platelet Volume 8.9 fL (6.9-10.8) Neutrophils (%) (Auto) 77.3 % (37.0-80.0) Lymphocytes (%) (Auto) 10.8 % (10.0-50.0) Monocytes (%) (Auto) 7.9 % (0.0-12.0) Eosinophils (%) (Auto) 3.3 % (0.0-7.0) Basophils (%) (Auto) 0.7 % (0.0-2.0) Neutrophils # (Auto) 4.9 10 ^3/uL (1.6-8.6) Lymphocytes # (Auto) 0.7 10 ^3/uL (0.4-5.4) Monocytes # (Auto) 0.5 10 ^3/uL (0-1.3) Eosinophils # (Auto) 0.2 10 ^3/uL (0-0.8) Basophils # (Auto) 0 10 ^3/uL (0-0.2) Nucleated Red Blood Cells 0.0 % Test 04/28/24 23:20 04/28/24 11:30 04/28/24 08:32 Influenza Type A Antigen Negative (Negative) Influenza Type B Antigen Negative (Negative) SARS-CoV-2 Antigen (Rapid) Negative (NEGATIVE) Troponin I High Sensitivity 29 ng/L (</=54) Hemoglobin A1c 7.4 % A1C (<5.7) Total Bilirubin 0.7 mg/dL (0.2-1.0) Aspartate Amino Transferase (AST) 12 U/L (13-40) Alanine Aminotransferase (ALT) 18 U/L (7-40) Alkaline Phosphatase 58 U/L (46-116) B-Type Natriuretic Peptide 1832.35 pg/mL (0-100) Total Protein 7.1 g/dL (5.7-8.2) Albumin 4.5 g/dL (3.2-4.8) Other Laboratory Tests 04/30/24 08:25 04/29/24 05:27 Brief Hx & Hospital Course: 78-year-old male with a history of hypertension diabetes noncompliant came in complaining of chest pain and shortness of breaths treated per ACS protocol ejection fraction 20 percent severe aortic stenosis by FLORA left heart catheterization showed normal coronaries seen by Cardiology Dr. Brito advised Eliquis 5 mg p.o. b.i.d. for three months also Lipitor metoprolol Entresto and Jardiance medications transmitted to the pharmacy patient's daughter at the bedside at the time of discharge. He will follow up with Dr. Brito in two weeks for arranging aortic valve repair general condition stable but poor at the time of discharge patient refused shelter facility placement home health being arranged. Consults/Reason for consult Cardiology Dr. Brito Operations or Procedures Left heart catheterization Condition at Discharge: Poor Final Diagnosis/Problems List Acute systolic CHF exacerbation ejection fraction 20 % continue Lasix consult by Dr. Brito appreciated Severe aortic stenosis; by FLORA Status post left heart catheterization by Dr. Brito found to have normal coronaries; recommended discharge on Eliquis 5 mg p.o. b.i.d. for three months Lipitor metoprolol Entresto and Jardiance HTN - continue metoprolol 25 mg p.o. b.i.d. PACs, Sinus Arrythmia - metoprolol 25 mg p.o. twice daily. Type 2 diabetes: Insulin sliding scale Hypokalemia - monitoring replace electrolytes. BLE Edema DVT ruled out CT abdomen pelvis without contrast negative Discharge Disposition: Home with Health Services Discharge Instruct/Medications Diet: Cardiac 2g Na,low cholest Activity: Light activity Follow Up/Referral: Use medications as prescribed Follow up with senior web architect Dr. Brito for arranging for aortic valve surgery Medications: Sent to the pharmacy 35 (Time taken for discharge summary 35 minutes) Discharge Statement: "Patient was advised to return to the ER or call 911 if any headaches, dizziness, shortness of breath, chest pain, abdominal pain, bleeding, fevers, or worsening of medical condition. Patient was counseled about treatment plan, medications, possible side effects, patientverbalized understanding. All questions were answered to the best of my ability. This discharge took greater then 30 minutes in planning, reviewing documentation, counseling the patient, and discussing with other team members." ASSESSMENT ASSESSMENT Assessment Acute systolic CHF exacerbation ejection fraction 20 % continue Lasix consult by Dr. Brito appreciated Severe aortic stenosis; by FLORA Status post left heart catheterization by Dr. Brito found to have normal coronaries; recommended discharge on Eliquis 5 mg p.o. b.i.d. for three months Lipitor metoprolol Entresto and Jardiance HTN - continue metoprolol 25 mg p.o. b.i.d. PACs, Sinus Arrythmia - metoprolol 25 mg p.o. twice daily. Type 2 diabetes: Insulin sliding scale Hypokalemia - monitoring replace electrolytes. BLE Edema DVT ruled out CT abdomen pelvis without contrast negative Date of Service: May 03, 2024 Billing Provider: KIANNA MARIE MD Common Visit Codes: [id number] DISCH DAY >30min KIANNA MARIE MD May 03, 2024 13:32
[2024-05-03] MEDS ORDERED: EMPA1TAB PO (13:35)
[2024-05-03] MEDS ORDERED: ATOR-507 PO (13:35)
[2024-05-03] MEDS ORDERED: SACU1TAB PO (13:35)
== END 2024-05-03 15:15 | disposition home health service (06) | DRG 286 ==
LOC: ER 08:15 → TELE 14:26 → TELE-WESTW 18:30
PROVIDERS: ADMIT Registered Nurse General Practice; ATTEND Family Medicine
PROC: B24BZZ4 Ultrasonography of Heart with Aorta, Transesophageal (ICD-10-PCS; principal; 2024-05-01)
PROC: B211YZZ Fluoroscopy of Multiple Coronary Arteries using Other Contrast (ICD-10-PCS; 2024-05-01)
DX: I11.0 Hypertensive heart disease with heart failure (principal); I50.23 Acute on chronic systolic (congestive) heart failure; J98.4 Other disorders of lung; I49.8 Other specified cardiac arrhythmias; Z20.822 Contact with and (suspected) exposure to COVID-19; E87.6 Hypokalemia; I44.7 Left bundle-branch block, unspecified; E11.9 Type 2 diabetes mellitus without complications; I08.3 Combined rheumatic disorders of mitral, aortic and tricuspid valves; Z91.199 Patient's noncompliance with other medical treatment and regimen due to unspecified reason; Z79.01 Long term (current) use of anticoagulants; Z79.899 Other long term (current) drug therapy; Z79.1 Long term (current) use of non-steroidal anti-inflammatories (NSAID)
CPT/HCPCS: 36415; 71045; 74176; 80048; 80053; 82962; 83036; 83735; 83880; 84484; 85025; 85379; 87426; 87804; 93005; 93306; 93312; 93454; 93970; 96374; 99152; 99153; 99291; 99292; G0378; J1815; J2250; Q9967